=== PATIENT | male | born 1970 | race Caucasian/White ===

== ENCOUNTER 2019-03-13 12:11 | Emergency (ER) | payer SELFPAY ==
[2019-03-13] MEDS: ACETAMINOPHEN 325 MG TAB PO (14:42)
[2019-03-13] MEDS: LORAZEPAM 1 MG TAB PO (14:42)
== END 2019-03-13 16:49 | disposition home or self-care (01) ==
LOC: FTE 12:11
DX: R51 Headache (principal); R25.3 Fasciculation
CPT/HCPCS: 70450; 99284-25